=== PATIENT | female | born 1965 | race Caucasian/White ===

== ENCOUNTER 2017-03-07 12:18 | Day surgery (SDC) | payer BC ==
[2017-03-07] MEDS ORDERED: Betamethasone Acetate/Betamethasone Sod Phosphate 30 MG/5 ML MDV ONE (13:22)
[2017-03-07] MEDS ORDERED: Lidocaine 2% 5 ML SDV ONE (13:22)
[2017-03-07] MEDS ORDERED: Ropivacaine 0.5% 5 MG/ML 30 ML SDV ONE (13:22)
[2017-03-07] MEDS ORDERED: Iopamidol 408 MG/ML 50 ML SDV ONE (13:23)
--- NOTE | 2017-03-07 21:27 | OR ---
SURGEON: Suyapa Lincoln D.O. DATE OF PROCEDURE: 03/07/2017 OR STAFF: 1. Armida Burgess RN. 2. Leydi Rey RN. RAT POISONER: RT Mateusz. WOUND CLASSIFICATION: I. PREOPERATIVE DIAGNOSIS: Right sacroiliac joint arthropathy. POSTOPERATIVE DIAGNOSIS: Right sacroiliac joint arthropathy. PROCEDURES PERFORMED: 1. Right sacroiliac joint injection. 2. Fluoroscopic guidance for needle placement. 3. Local with oral Valium for sedation. SCREENING QUESTIONS: The patient answered "No" to all the followin. Are you allergic to iodine, Betadine or latex? 2. Do you have a bleeding disorder? 3. Do you have any joint replacements, heart valve replacements or a pacemaker? 4. Are you on any anti-inflammatories or blood thinners? 5. Do you have any current local or systemic infections? MEDICAL NECESSITY: This is a patient with a history of severe chronic low back pain and sacroiliac joint irritation with pain over the sacral sulcus and the buttocks region who comes in for the above diagnostic and therapeutic procedure. Please see medical necessity note attached. This procedure is being done in accordance with guidelines as written by the [employer] ([place]). DESCRIPTION OF PROCEDURE: The patient had the procedure thoroughly explained including all possible risks, benefits and alternatives. Consent was signed in my clinic indicating understanding and willingness to proceed. The patient presented to the outpatient [facility] and was escorted to the dressing room to disrobe and change into a hospital gown. Preoperative vital signs were taken and stable. The patient reported that Valium was taken prior to the procedure. The patient was brought to the procedure room and placed in the prone position on the procedure room table. A pillow was placed under the hips in order to flatten the lumbar lordosis. The back was prepped with ChloraPrep and sterilely draped. All personnel in the operating room were dressed in appropriate attire including surgical scrubs, head and shoe covers. This was to ensure sterility while in the treatment room. During the time fluoroscopy was in use all personnel in the operating room wore lead torres with thyroid collars. Sterile technique was used during the procedure. The patient was awake and conversant throughout the procedure. The fluoroscope was positioned to provide an oblique view of the sacroiliac joint. There was no evidence of infection at the site of needle insertion. The skin was anesthetized with 2% Lidocaine with a sterile 27-gauge 1.5 inch needle. Then under fluoroscopy a 22-gauge 3.5 inch spinal needle was placed within the sacroiliac joint in the lower one-third of the joint. IsoVue-200 contrast dye was injected under live fluoroscopy and no intravascular flow pattern was observed. After negative aspiration of heme, the following solution was injected: 0.5% Ropivacaine, Celestone and 2% Lidocaine. The patient tolerated the procedure well and vital signs were stable during and after the procedure. The staff escorted the patient to the recovery area and the patient was released to home in stable condition after a brief stay in the recovery room monitored by the nurse. The patient was given both oral and written discharge and follow up instructions. Recommended follow up in two weeks. The patient is able to contact the office if there are any additional problems or questions in the meantime. The patient was given discharge instruction and verbalizes understanding including understanding of those signs and symptoms that would require emergency care. PREOPERATIVE PAIN: 3/10 to 5/10. POSTOPERATIVE PAIN: 0/10. PLAN: Follow up with pain diary in the Pain Clinic in 3 weeks. AARON / JULIO /[id number]
== END 2017-03-07 14:58 ==
LOC: MW.SDS 12:18
PROVIDERS: ATTEND Anesthesiology
DX: G89.29 Other chronic pain (principal); M47.898 Other spondylosis, sacral and sacrococcygeal region; M51.37 Other intervertebral disc degeneration, lumbosacral region; M47.816 Spondylosis without myelopathy or radiculopathy, lumbar region; M79.1 Myalgia; M46.1 Sacroiliitis, not elsewhere classified; F41.9 Anxiety disorder, unspecified; Z87.440 Personal history of urinary (tract) infections; Z88.1 Allergy status to other antibiotic agents; Z79.899 Other long term (current) drug therapy; Z98.890 Other specified postprocedural states; Z00.00 Encounter for general adult medical examination without abnormal findings; M54.5 Low back pain
CPT/HCPCS: 36415; 84703; G0260; J0702; J2795; Q9966

== ENCOUNTER 2021-06-01 06:36 | Day surgery (SDC) | payer BC ==
[2021-06-01] MEDS ORDERED: Midazolam 1 MG/ML 2 ML SDV ONE (06:59)
[2021-06-01] MEDS ORDERED: fentaNYL 100 MCG/2 ML SDV ONE (06:59)
[2021-06-01] MEDS ORDERED: Propofol 200 MG/20 ML SDV ONE (06:59)
[2021-06-01] MEDS ORDERED: Ondansetron 4 MG/2 ML SDV ONE (07:01)
[2021-06-01] MEDS ORDERED: Dexamethasone 4 MG/ML 5 ML MDV ONE (07:01)
[2021-06-01] MEDS ORDERED: Morphine 2 MG/ML SYRINGE IVPUSH PRN (07:40)
[2021-06-01] MEDS ORDERED: Ondansetron 4 MG/2 ML SDV IVPUSH PRN (07:40)
[2021-06-01] MEDS ORDERED: fentaNYL 100 MCG/2 ML SDV IVPUSH PRN (07:40)
[2021-06-01] MEDS ORDERED: Naloxone 0.4 MG/ML SDV IVPUSH PRN (07:40)
[2021-06-01] MEDS ORDERED: HYDROmorphone 1 MG/ML Syringe IVPUSH PRN (07:40)
[2021-06-01] MEDS ORDERED: Metoclopramide 10 MG/2 ML SDV IVPUSH PRN (07:40)
[2021-06-01] MEDS ORDERED: Albuterol 0.083% 2.5 MG/3 ML Neb Soln NEB PRN (07:40)
[2021-06-01] MEDS ORDERED: Ketorolac 30 MG/ML SDV ONE (08:14)
[2021-06-01] MEDS ORDERED: Glycopyrrolate 0.2 MG/ML SDV ONE (08:26)
[2021-06-01] MEDS ORDERED: Acetaminophen/HYDROcodone 325-5 MG Tab PO PRN (08:58)
== END 2021-06-01 10:48 | disposition home or self-care (01) ==
LOC: MW.SDS 06:36
PROVIDERS: ATTEND Obstetrics & Gynecology
DX: N84.0 Polyp of corpus uteri (principal); F32.A Depression, unspecified; Z79.899 Other long term (current) drug therapy; Z98.890 Other specified postprocedural states; Z01.812 Encounter for preprocedural laboratory examination; Z20.822 Contact with and (suspected) exposure to COVID-19
CPT/HCPCS: 36415; 58553; 84703; 85025; 87635; J0131; J1100; J1885; J2250; J2704; J3490; 00952; J2405; J3010; U0002

== ENCOUNTER 2022-12-28 08:09 | Observation (INO) | payer BC ==
[2022-12-28] MEDS ORDERED: Ondansetron 4 MG/2 ML SDV IVPUSH ONE (08:14)
[2022-12-28] MEDS ORDERED: Morphine 2 MG/ML SYRINGE IVPUSH STA (08:14)
[2022-12-28] MEDS ORDERED: Ondansetron 4 MG/2 ML SDV ONE ×3 (08:15→12:55)
[2022-12-28] MEDS ORDERED: Morphine 2 MG/ML SYRINGE ONE (08:15)
[2022-12-28] MEDS ORDERED: Sodium Chloride 0.9% 2.5 ML Syringe FLUSH PRN ×2 (08:17→13:20)
[2022-12-28] MEDS ORDERED: Sodium Chloride 0.9% 1,000 ML IV ONE (08:17)
[2022-12-28] MEDS ORDERED: Sodium Chloride 0.9% 10 ML Syringe FLUSH PRN ×2 (08:17→13:20)
[2022-12-28] MEDS ORDERED: Naloxone 0.4 MG/ML SDV IVPUSH PRN ×2 (08:20→11:44)
[2022-12-28] MEDS ORDERED: Morphine 4 MG/ML Syringe IVPUSH ONE (08:20)
[2022-12-28 08:24] LABS: BASOPHILS PERCENT AUTO 0.4 % (0.0-1.5); EOSINOPHILS ABSOLUTE AUTO 0.1 K/uL (0.0-0.7); EOSINOPHILS PERCENT AUTO 1.9 % (0.0-7.0); HEMATOCRIT 42.9 % (36.0-46.0); HEMOGLOBIN 14.6 g/dL (12.0-16.0); LYMPHOCYTES PERCENT AUTO 26.6 % (16.0-40.0); MEAN CORPUSCULAR VOLUME 88.3 fL (80.0-98.0); MONOCYTES ABSOLUTE AUTO 0.8 K/uL (0.0-0.8); MONOCYTES PERCENT AUTO 10.5 % (0.0-15.0); NEUTROPHILS ABSOLUTE AUTO 4.5 K/uL (1.4-5.7); NEUTROPHILS PERCENT AUTO 60.6 % (48.0-80.0); NRBC ABSOLUTE 0 K/uL; PLATELET COUNT,PLT 338 K/uL (150-400); RED BLOOD CELL COUNT 4.86 M/uL (4.30-5.90)
[2022-12-28] MEDS ORDERED: Morphine 2 MG/ML SYRINGE IVPUSH ONE (08:33)
[2022-12-28 08:48] LABS: ALBUMIN 3.8 g/dL (3.4-5.0); BILIRUBIN TOTAL 0.6 mg/dL (0.2-1.0); CALCIUM 9.3 mg/dL (8.5-10.1); CARBON DIOXIDE,CO2 22.5 mmol/L (21.0-32.0); CREATININE 1.1 mg/dL (0.6-1.0); EST CRCL DRUG DOSING (CG) 47.24 mL/min; POTASSIUM,K 3.5 mmol/L (3.5-5.1); PROTEIN TOTAL,TP 7.6 g/dL (6.4-8.2)
[2022-12-28] MEDS ORDERED: Ketorolac 30 MG/ML SDV IVPUSH ONE (08:53)
[2022-12-28] MEDS ORDERED: HYDROmorphone 2 MG/ML Syringe IVPUSH ONE ×2 (10:00→10:59)
[2022-12-28 10:04] LABS: APPEARANCE,URINE CLEAR; BILIRUBIN,URINE NEGATIVE (NEGATIVE); COLOR,URINE YELLOW; GLUCOSE,URINE NEGATIVE (NEGATIVE); KETONES,URINE 15 mg/dL (NEGATIVE); LEUKOCYTE ESTERASE,URINE NEGATIVE (NEGATIVE); NITRITE,URINE NEGATIVE (NEGATIVE); OCCULT BLOOD,URINE SMALL (NEGATIVE); PROTEIN,URINE NEGATIVE (NEGATIVE); UROBILINOGEN,URINE 0.2 EU/dL (<2.0)
[2022-12-28] MEDS ORDERED: Iopamidol 755 MG/ML 500 ML Multipack Bottle IVPUSH STA (10:07)
[2022-12-28 10:14] LABS: EPITHELIAL CELLS,URINE RARE (NONE-FEW); RBC,URINE 0-3 (0-2/HPF); WBC,URINE 0-2 (0-5/HPF)
[2022-12-28] MEDS ORDERED: Piperacillin/Tazobactam 3.375 GM in Sodium Chloride 0.9% 100 ML IV ONE (10:49)
[2022-12-28] MEDS ORDERED: fentaNYL 100 MCG/2 ML SDV ONE ×2 (11:01→12:54)
[2022-12-28] MEDS ORDERED: Rocuronium Bromide 50 MG/5 ML Syringe ONE (11:01)
[2022-12-28] MEDS ORDERED: propofoL 0 ML ONE (11:02)
[2022-12-28] MEDS ORDERED: propofoL 50 ML ONE (11:03)
[2022-12-28] MEDS ORDERED: Dexmedetomidine 200 MCG/2 ML SDV IV ONE (11:04)
[2022-12-28] MEDS ORDERED: Indocyanine Green 25 MG SDV INJECT ONE (11:04)
[2022-12-28] MEDS ORDERED: Lidocaine 2% 100 MG/5 ML Syringe ONE (11:07)
[2022-12-28] MEDS ORDERED: Bupivacaine 0.5% 30 ML SDV ONE (11:36)
[2022-12-28] MEDS ORDERED: Morphine 2 MG/ML SYRINGE IVPUSH PRN (11:44)
[2022-12-28] MEDS ORDERED: Ondansetron 4 MG/2 ML SDV IVPUSH PRN ×2 (11:44→13:20)
[2022-12-28] MEDS ORDERED: Albuterol 0.083% 2.5 MG/3 ML Neb Soln NEB PRN (11:44)
[2022-12-28] MEDS ORDERED: fentaNYL 50 MCG/ML SDV IVPUSH PRN (11:44)
[2022-12-28] MEDS ORDERED: Metoclopramide 10 MG/2 ML SDV IVPUSH PRN (11:44)
[2022-12-28] MEDS ORDERED: droPERidol 5 MG/2 ML SDV IVPUSH PRN (11:44)
[2022-12-28] MEDS ORDERED: Bupivacaine 0.25% 30 ML SDV ONE (11:51)
[2022-12-28] MEDS ORDERED: fentaNYL 250 MCG/5 ML SDV ONE (12:09)
[2022-12-28] MEDS ORDERED: Lidocaine 2% 11 ML Jelly Filled Syringe ONE (12:25)
[2022-12-28] MEDS ORDERED: Sugammadex Sodium 200 MG/2 ML VIAL ONE (12:55)
[2022-12-28] MEDS ORDERED: Dexamethasone 4 MG/ML 5 ML MDV ONE (12:55)
[2022-12-28] MEDS ORDERED: Sodium Chloride 0.9% 20 ML SDV IV PRN (13:20)
[2022-12-28] MEDS ORDERED: HYDROmorphone 2 MG/ML Syringe IVPUSH PRN (13:20)
[2022-12-28] MEDS ORDERED: diphenhydrAMINE 50 MG/ML SDV IVPUSH PRN (13:20)
[2022-12-28] MEDS: HYDROmorphone 1 MG/ML Syringe IVPUSH PRN ×2 (13:34→13:48)
[2022-12-28] MEDS: Pantoprazole 40 MG in Sodium Chloride 0.9% 10 ML IVPUSH SCH (14:46)
[2022-12-28] MEDS: Ketorolac 30 MG/ML SDV IVPUSH SCH ×2 (14:47→20:35)
[2022-12-28] MEDS: Lactated Ringers 1,000 ML IV SCH ×2 (15:04→23:14)
[2022-12-28] MEDS: Acetaminophen 1,000 MG in Premix Bag 1 BAG IV SCH (17:55)
[2022-12-29] MEDS: Acetaminophen 1,000 MG in Premix Bag 1 BAG IV SCH ×2 (00:30→06:03)
[2022-12-29] MEDS: Ketorolac 30 MG/ML SDV IVPUSH SCH ×2 (03:41→09:06)
[2022-12-29 05:48] LABS: HEMATOCRIT 35.8 % (36.0-46.0); HEMOGLOBIN 11.8 g/dL (12.0-16.0); MEAN CORPUSCULAR HEMOGLOBIN 29.5 pg (27.0-32.0); MEAN CORPUSCULAR VOLUME 89.5 fL (80.0-98.0); MEAN PLATELET VOLUME 9.7 fL (7.40-12.00); WHITE BLOOD CELL COUNT,WBC 8.6 K/uL (4.0-11.0)
[2022-12-29] MEDS: Pantoprazole 40 MG in Sodium Chloride 0.9% 10 ML IVPUSH SCH (09:04)
[2022-12-29] MEDS: Lactated Ringers 1,000 ML IV SCH (11:23)
[2022-12-29] MEDS ORDERED: traMADol 50 MG Tab PO PRN (11:48)
[2022-12-29] MEDS: Ketorolac 10 MG Tab PO PRN (17:17)
[2022-12-30] MEDS: Ketorolac 10 MG Tab PO PRN (01:39)
[2022-12-30] MEDS ORDERED: HYDROmorphone 1 MG/ML Syringe IVPUSH PRN (06:58)
[2022-12-30] MEDS: Pantoprazole 40 MG in Sodium Chloride 0.9% 10 ML IVPUSH SCH (09:04)
== END 2022-12-30 10:36 | disposition home or self-care (01) ==
LOC: MW.ED 08:09 → MW.MS 11:03
PROVIDERS: ADMIT Surgery; ATTEND Surgery
DX: K45.8 Other specified abdominal hernia without obstruction or gangrene (principal); M54.2 Cervicalgia; G89.29 Other chronic pain; F32.A Depression, unspecified; Z79.899 Other long term (current) drug therapy; Z88.1 Allergy status to other antibiotic agents
CPT/HCPCS: 36415; 44238; 64488; 74177; 80053; 81001; 83605; 83690; 85025; 85027; 87070; 87075; 87205; 93005; 96361; 96365; 96375; 96376; 99285; A9270; C9113; J0131; J1100; J1170; J1885; J2270; J2405; J2543; J2704; J3010; J3490; J7030; J7120; Q9967; 00790; 93010; 99291; G0378

== ENCOUNTER 2023-05-16 10:51 | Day surgery (SDC) | payer BC ==
[~2023-05-16 10:51] MED LIST: Lactated Ringers 1,000 ML IV SCH; Sodium Chloride 0.9% 10 ML Syringe FLUSH PRN; Sodium Chloride 0.9% 2.5 ML Syringe FLUSH PRN; Sodium Chloride 0.9% 20 ML SDV IV PRN
[2023-05-16] MEDS ORDERED: propofoL 50 ML ONE (11:16)
== END 2023-05-16 12:40 | disposition home or self-care (01) ==
LOC: MW.SDS 10:51
PROVIDERS: ATTEND Surgery
DX: K29.50 Unspecified chronic gastritis without bleeding (principal); K45.8 Other specified abdominal hernia without obstruction or gangrene; F98.8 Other specified behavioral and emotional disorders with onset usually occurring in childhood and adolescence; F41.9 Anxiety disorder, unspecified; Z79.899 Other long term (current) drug therapy; Z88.8 Allergy status to other drugs, medicaments and biological substances
CPT/HCPCS: 43239; 45380; J2704; J7120; 00813